=== PATIENT | male | born 1985 | race Native Hawaiian/Other Pacific Islander ===

== ENCOUNTER 2016-03-23 12:03 | Inpatient (IN) | payer OTHER ==
[~2016-03-23] VITALS: Ht 175.3 cm; Wt 123.4 kg
[2016-03-23] VITALS (16 sets, daily range): BP systolic 107–167; BP diastolic 71–104; TEMP 97.6–98.4; Ht 175.3 cm; Wt 123.4 kg
[2016-03-23 12:57] LABS: PLATELET COUNT 243 K/uL (142-355)
[2016-03-23 13:08] LABS: POTASSIUM 3.7 mmol/L (3.6-5.2); SODIUM 134 mmol/L (136-145)
--- NOTE | 2016-03-23 14:13 | NUR ---
PT ADMITTED TO ICU FROM ER FOR ANEMIA. PT ARRIVED PER WC. PT ALERT AND ORIENTED. PT TO ICU BED. PLACED PT ON THE MONITORS. V/S STABLE. HR 100'S ST NOTED ON THE MONITOR. PT C/O EPIGASTRIC BURNING. PT STATED HE HAS HAD DARK TARRY STOOLS SINCE SAT AND FEELING DIZZY AND WEAK. PT ST[facility]. ORIENTED PT TO ICU SURROUNDINGS. PT HAS 18G SL TO LAC. DR. ANDERSON NOTIFIED OF PT'S ARRIVAL.
--- NOTE | 2016-03-23 14:40 | NUR ---
1ST UNIT OF BLOOD INFUSING. WILL CONTINUE TO MONITOR. ROQUE DAILEY RN AT BEDSIDE FOR DR. ANDERSON.
--- NOTE | 2016-03-23 15:00 | NUR ---
DR. MESSER NOTIFIED OF CONSULT.
--- NOTE | 2016-03-23 15:00 | NUR ---
PT CATRINA BLOOD INCREASED TO 100ML/HR. THIGH HIGH DAVID HOSE APPLIED TO BLE. WILL CONTINUE TO MONITOR.
--- NOTE | 2016-03-23 15:30 | NUR ---
2ND IV STARTED IN R AC X [address]
--- NOTE | 2016-03-23 16:00 | NUR ---
PT CATRINA BLOOD WELL INCREASED TO 150ML/HR.
--- NOTE | 2016-03-23 17:11 | NUR ---
PT WATCHING TV. NAD NOTED AT THIS TIME.
--- NOTE | 2016-03-23 17:45 | NUR ---
ORTHOSTATIC BP LYING 95, 138/77, SITTING 104, 151/91, STANDING 120, 163/106. DR. ANDERSON AWARE.
--- NOTE | 2016-03-23 19:49 | NUR ---
PRBC'S INFUSING WITHOUT DIFFICULTY.
--- NOTE | 2016-03-23 20:43 | NUR ---
BLOOD COLLECTED X 2 STICKS TO THE LEFT HAND. BLOOD COLECTED FOR PT/PTT AND CURRENT HEMOGLOBIN AND HEMATOCRIT.
[2016-03-23 21:38] LABS: PARTIAL THROMBOPLASTIN TIME 20.3 SECONDS (24.5-33.6)
--- NOTE | 2016-03-23 21:38 | NUR ---
REPORTED HEMOGLOBIN AND HEMATOCRIT TO DR. ANDERSON. PT DOES NOT HAVE CAD OR CHF. PT TO RECEIVE 2 MORE UNITS OF PRBC'S.
--- NOTE | 2016-03-23 22:27 | NUR ---
3RD UNIT PRBC'S STARTED. PT TOLERATING WITHOUT S/SX OF ADVERSE REACTION. PT DOES STATE THAT HE FEELS MUCH BETTER.
[2016-03-24] VITALS (19 sets, daily range): BP systolic 106–145; BP diastolic 60–87; TEMP 97.1–99
--- NOTE | 2016-03-24 03:52 | NUR ---
PT RECEIVING 4TH UNIT OF PRBCS.VNO S/SX OF ADVERSE REACTION.
--- NOTE | 2016-03-24 05:43 | NUR ---
CM SHOWING NSR. PT HAS RESTED WITH NOTED PERIODS OF SLEEP APNEA. PT NPO FOR EGD THIS AM.
--- NOTE | 2016-03-24 06:35 | NUR ---
PT HAS BEEN UOB TO BR AND URINATED X2. PT NPO FOR EGD. 4TH UNIT PRBC'S INFUSION COMPLETED BY 0600. CBC AND BMP TO BE DRAWN BY 8 AM. PT WEARING DAVID HOSE.
--- NOTE | 2016-03-24 08:39 | NUR ---
PT TAKEN TO OR FOR EGD
[2016-03-24 08:47] LABS: PLATELET COUNT 200 K/uL (142-355)
[2016-03-24 08:51] LABS: POTASSIUM 3.7 mmol/L (3.6-5.2); SODIUM 138 mmol/L (136-145)
--- NOTE | 2016-03-24 09:39 | NUR ---
PT RETURN FROM OR, PT AWAKE AND ALERT
--- NOTE | 2016-03-24 11:05 | NUR ---
PT UP TO RESTROOM TO VOID.
--- NOTE | 2016-03-24 11:18 | NUR ---
URINE SAMPLE TAKEN TO LAB
--- NOTE | 2016-03-24 11:20 | NUR ---
DR ANDERSON AT BS
--- NOTE | 2016-03-24 13:00 | NUR ---
PT AWAKE/ORIENTED, NO C/O, TOLERATED CLD. IV SITE X2 PATENT
--- NOTE | 2016-03-24 13:30 | NUR ---
TRANSFERRED PT TO MED SURG RM 1125. REPORT GIVEN TO STEPHANIE PENA RN
[2016-03-25 00:04] VITALS: BP 102/50; TEMP 98.2
[2016-03-25 04:00] VITALS: BP 114/68; TEMP 98.3
[2016-03-25 05:07] LABS: PLATELET COUNT 207 K/uL (142-355)
[2016-03-25 05:08] LABS: POTASSIUM 3.4 mmol/L (3.6-5.2); SODIUM 141 mmol/L (136-145)
[2016-03-25 08:00] VITALS: BP 128/69; TEMP 98.5
[2016-03-25 12:00] VITALS: BP 126/73; TEMP 98.7
== END 2016-03-25 14:45 | disposition home or self-care (01) | DRG 377 ==
LOC: ED 12:03 → ICU 13:20 → MED/SURG 03-24 13:30
PROVIDERS: Internal Medicine; Student in an Organized Health Care Education/Training Program
PROC: 30233N1 Transfusion of Nonautologous Red Blood Cells into Peripheral Vein, Percutaneous Approach (ICD-10-PCS; principal; 2016-03-23)
PROC: 30233N1 Transfusion of Nonautologous Red Blood Cells into Peripheral Vein, Percutaneous Approach (ICD-10-PCS; 2016-03-24)
PROC: 0DJ08ZZ Inspection of Upper Intestinal Tract, Via Natural or Artificial Opening Endoscopic (ICD-10-PCS; 2016-03-24)
DX: K92.2 Gastrointestinal hemorrhage, unspecified (principal); R57.1 Hypovolemic shock; K22.10 Ulcer of esophagus without bleeding; K44.9 Diaphragmatic hernia without obstruction or gangrene; K29.00 Acute gastritis without bleeding; D64.89 Other specified anemias; K21.9 Gastro-esophageal reflux disease without esophagitis
CPT/HCPCS: 36415; 36430; 80048; 80053; 81000; 82728; 83036; 83540; 83550; 84466; 85014; 85018; 85027; 85044; 85610; 85730; 86318; 86850; 86900; 86901; 86922; 93005; 96375; 99285; J2001; J2704; J3490; P9016